=== PATIENT | male | born 1990 ===

== ENCOUNTER 2017-06-14 14:50 | Emergency (ER) | payer OTHER ==
[2017-06-14 15:14] VITALS: TEMP 98.6; O2SAT 100
[2017-06-14] MEDS ORDERED: Tdap Vaccine 0.5 ml Vial (10-64 yrs) IM ONE ×2 (15:58→16:03)
[2017-06-14] MEDS ORDERED: Lidocaine 2% Inj (20ml) INFIL STA (15:59)
--- NOTE | 2017-06-14 16:01 | C.PDOC ---
History Of Present Illness 26 yo male come in for evaluation of Left index finger laceration with knife sustained [employer] while at work . Pt admits, bloody oozing from wound. Otherwise, pt denies deformity, weakness, sensory or vascular deficits to injured finger. Ambulate to Ed for evaluation, not in any apparent distress. Time Seen by Provider: 06/14/17 15:25 Chief Complaint (Nursing): Abnormal Skin Integrity History Per: Patient Onset/Duration Of Symptoms: Sudden Onset Past Medical History Reviewed: Historical Data, Nursing Documentation, Vital Signs Vital Signs: Last Vital Signs Temp 98.6 F 06/14/17 15:12 Pulse 88 06/14/17 15:12 Resp 20 06/14/17 15:12 BP 133/88 06/14/17 15:12 Pulse Ox 100 06/14/17 16:06 Family History: States: No Known Family Hx - Social History Hx Tobacco Use: No Hx Alcohol Use: No Hx Substance Use: No - Immunization History Hx Tetanus Toxoid Vaccination: No Hx Influenza Vaccination: No Hx Pneumococcal Vaccination: No Review Of Systems Except As Marked, All Systems Reviewed And Found Negative. Constitutional: Negative for: Fever, Chills Musculoskeletal: Positive for: Hand Pain Skin: Positive for: Lesions Neurological: Negative for: Weakness, Numbness Physical Exam - Physical Exam Appears: Well, Non-toxic, No Acute Distress Skin: Normal Color, Warm, Other ((+)dorsal aspect left 2nd middle phalanx C- shape cutaneous 2cm laceration, mild bloody oozng from wound. no defomrity, no tendon or ligament injury, no wound FB noted.) Head: Normacephalic Extremity: Normal ROM (Left index finger withu difficulty), Capillary Refill ( les sthan 2sec to left index), No Deformity, No Swelling Neurological/Psych: Oriented x3, Normal Speech, Normal Motor, Normal Sensation, Normal Reflexes ED Course And Treatment O2 Sat by Pulse Oximetry: 100 Progress Note: On re-eval, pt is afebrile, hemodynamicaly stable. non-toxic. left hand; exam c/w left index finger laceration s/p suture repair. FAROM, no neurovascular deficits. Pt advised on wound care. ref. to f/u with PMD in 2 days for re-eval. Laceration - Laceration Repair left index Wound Length (In cm): 2cm Description Of Wound: Clean (C-shape) Wound Cleansed With: Betadine Anesthesia: Lidocaine 2% Wound Examination: Irrigated With Saline, No FB With Wound Exploration, No Tendon Injury With Wound Exploration Wound Closure: Suture (#6) Suture Technique And Material Used: Interrupted, Nylon (5-0) Wound Complexity: Simple Disposition Counseled Patient/Family Regarding: Diagnosis, Need For Followup - Disposition Referrals: [facility] [Outside] Disposition: HOME/ ROUTINE Disposition Time: 16:04 Condition: STABLE Additional Instructions: keep wound dry for 2 days Light duty to injured finger Suture removal in 7-10 days Follow up with PMD in 2 days for wound re-evaluation. return to Ed at any time if any sign of infection. Instructions: Laceration Repair With Stitches (DC) Forms: [facility] (Armenian), Work Excuse - Clinical Impression Clinical Impression: Finger laceration
[2017-06-14] MEDS ORDERED: Lidocaine 2% Inj (20ml) ONE (16:03)
[2017-06-14 16:29] VITALS: BP 122/77; PULSE 79; RESP 18
== END 2017-06-14 16:31 | disposition home or self-care (01) ==
LOC: C.ER 14:50
DX: S61.211A Laceration without foreign body of left index finger without damage to nail, initial encounter (principal); W26.0XXA Contact with knife, initial encounter; Z23 Encounter for immunization

== ENCOUNTER 2017-06-25 14:54 | Emergency (ER) | payer OTHER ==
[2017-06-25 15:02] VITALS: BP 117/72; PULSE 73; TEMP 98.6; O2SAT 98
--- NOTE | 2017-06-25 15:36 | C.PDOC ---
History Of Present Illness 26yo male, presents to ED for removal of sutures placed on his left 2nd digit 10 days ago. Patient denies any new injuries, any drainage or discharge from the area. He also denies any fever, chills. No other complaints. Time Seen by Provider: 06/25/17 15:18 Chief Complaint (Nursing): Suture/Staple Removal History Per: Patient History/Exam Limitations: no limitations Onset/Duration Of Symptoms: Days Ago (10) Location Of Injury: Left: Hand (2nd digit) Quality Of Symptoms: denies: Painful, Itching, Swollen, Draining Past Medical History Reviewed: Historical Data, Nursing Documentation, Vital Signs Vital Signs: Last Vital Signs Temp 98.6 F 06/25/17 15:00 Pulse 73 06/25/17 15:00 Resp 18 06/25/17 15:49 BP 117/72 06/25/17 15:00 Pulse Ox 98 06/25/17 15:54 - Medical History PMH: No Chronic Diseases Surgical History: No Surg Hx Family History: States: No Known Family Hx - Social History Hx Tobacco Use: No Hx Alcohol Use: No Hx Substance Use: No - Immunization History Hx Tetanus Toxoid Vaccination: No Hx Influenza Vaccination: No Hx Pneumococcal Vaccination: No Review Of Systems Except As Marked, All Systems Reviewed And Found Negative. Constitutional: Negative for: Fever, Chills Musculoskeletal: Positive for: Other (no drainage, swelling form suture site) Physical Exam - Physical Exam Appears: Non-toxic, No Acute Distress Skin: Normal Color, Other (well healing laceration to left 2nd digit, sutures intact) Head: Normacephalic Eye(s): bilateral: Normal Inspection, EOMI Nose: Normal Oral Mucosa: Moist Neck: Normal ROM, Supple Chest: Symmetrical Respiratory: No Accessory Muscle Use Neurological/Psych: Oriented x3 ED Course And Treatment O2 Sat by Pulse Oximetry: 98 (RA) Pulse Ox Interpretation: Normal Progress Note: Sutures removed by provider, area cleaned and steri strips applied. Patient stable for discharge home. Disposition - Disposition Disposition: HOME/ ROUTINE Disposition Time: 15:36 Condition: STABLE Instructions: Stitches Removal Forms: [employer] (Albanian) - Clinical Impression Clinical Impression: Removal of suture - PA / DIRECTOR OF CARDIAC REHABILITATION / Resident Statement MD/DO has reviewed & agrees with the documentation as recorded. - Scribe Statement The provider has reviewed the documentation as recorded by the Scribe (Yessica Lewis) Provider Attestation: All medical record entries made by the Steffi were at my direction and personally dictated by me. I have reviewed the chart and agree that the record accurately reflects my personal performance of the history, physical exam, medical decision making, and the department course for this patient. I have also personally directed, reviewed, and agree with the discharge instructions and disposition.
[2017-06-25 15:50] VITALS: RESP 18
== END 2017-06-25 15:50 | disposition home or self-care (01) ==
LOC: C.ER 14:54
DX: Z48.02 Encounter for removal of sutures (principal)